=== PATIENT | female | born 1970 | race Caucasian/White ===

== ENCOUNTER 2024-01-01 13:02 | Observation (INO) | payer MEDICARE, BC ==
[~2024-01-01] VITALS: Ht 167.6 cm; Wt 108.2 kg
[~2024-01-01 13:02] MED LIST: ALPR1TAB2 PO; ARIP20TA4 PO; BUSP5TAB3 PO; HYDR25TA4 PO; LISI20TA28 PO; LITH150C8 PO
[2024-01-01 13:24] LABS: BASOPHILS # (AUTO) 0.1 X10'3 (0-0.2); BASOPHILS % (AUTO) 0.5 % (0-1); EOSINOPHILS # (AUTO) 0.3 X10'3 (0-0.9); EOSINOPHILS % (AUTO) 3.2 % (0-6); HEMATOCRIT 35.8 % (35.0-45.0); LYMPHOCYTES # (AUTO) 1.2 X10'3 (1.1-4.8); LYMPHOCYTES % (AUTO) 11.4 % (21-51); MEAN CORPUSCULAR HEMOGLOBIN 31.4 PG (27.0-31.0); MEAN CORPUSCULAR HGB CONC 33.6 g/dL (33.0-36.5); MEAN CORPUSCULAR VOLUME 93.3 FL (78-98); MEAN PLATELET VOLUME 8.1 FL (7.4-10.4); MONOCYTES # (AUTO) 0.6 X10'3 (0-0.9); MONOCYTES % (AUTO) 6.2 % (2-12); NEUTROPHILS # (AUTO) 8.2 X10'3 (1.8-7.7); NEUTROPHILS % (AUTO) 78.7 % (42-75); PLATELET COUNT 279 X10'3 (140-440); RED BLOOD COUNT 3.84 X10'6 (4.20-5.60); RED CELL DISTRIBUTION WIDTH 14.4 % (11.5-14.5); WHITE BLOOD COUNT 10.5 X10'3 (4.5-11.0)
[2024-01-01 13:39] LABS: APTT 24 SECONDS (22-32); PROTHROMBIN TIME 9.8 SECONDS (9.0-12.0)
[2024-01-01 13:46] LABS: ALANINE AMINOTRANSFERASE 37 U/L (12-78); ALBUMIN 4.1 G/DL (3.4-5.0); ALBUMIN/GLOBULIN RATIO 1.4 (1.1-1.5); ALKALINE PHOSPHATASE 86 IU/L (46-116); ANION GAP 12 (8-16); ANION GAP 13 (8-16); ASPARTATE AMINO TRANSFERASE 18 U/L (10-37); BILIRUBIN,TOTAL 0.3 MG/DL (0.1-1.0); BLOOD UREA NITROGEN 30 MG/DL (7-18); BLOOD UREA NITROGEN 31 MG/DL (7-18); BUN/CREATININE RATIO 14.9 (10.0-20.0); CALCIUM 8.3 MG/DL (8.5-10.1); CALCIUM 8.5 MG/DL (8.5-10.1); CHLORIDE 102 MMOL/L (99-107); CREATININE 2.02 MG/DL (0.40-0.90); CREATININE 2.07 MG/DL (0.40-0.90); GLUCOSE 137 MG/DL (70-104); GLUCOSE 139 MG/DL (70-104); POTASSIUM 3.8 MMOL/L (3.5-5.1); POTASSIUM 3.9 MMOL/L (3.5-5.1); SODIUM 137 MMOL/L (135-145); TOTAL CARBON DIOXIDE 22.3 MMOL/L (24-32); TOTAL CARBON DIOXIDE 22.8 MMOL/L (24-32); TOTAL PROTEIN 7.1 G/DL (6.4-8.2); eCRCL 29 ML/MIN; eGFR 25 ML/MIN; eGFR 26 ML/MIN
[2024-01-01 13:48] LABS: INR 0.9 INR
[2024-01-01 13:53] LABS: PRO BRAIN NATRIURETIC PEPTIDE 215 PG/ML (0-125)
[2024-01-01] MEDS ORDERED: iohexol 350MG/ML 100ml bottle IV ONE (14:09)
[2024-01-01 17:22] LABS: HEMOGLOBIN A1C 5.9 % (4.5-6.2)
[2024-01-01 17:28] LABS: BILIRUBIN,URINE NEGATIVE (Neg); CLARITY,URINE CLOUDY (Clear); COLOR,URINE STRAW (Yellow); GLUCOSE, URINE NEGATIVE (Neg); KETONES,URINE NEGATIVE (Neg); LEUKOCYTE ESTERASE ,URINE MODERATE (Neg); NITRITES, URINE NEGATIVE (Neg); OCCULT BLOOD,URINE NEGATIVE (Neg); PH,URINE 5.5 (4.8-8.0); PROTEIN,URINE NEGATIVE (Neg); UROBILINOGEN,URINE 0.2 E.U/dL (0.2-1.0)
[2024-01-01 17:35] LABS: UA COLLECTION TYPE CLN CATCH MIDSTREAM
[2024-01-01 17:58] LABS: BACTERIA,URINE FEW /HPF (Neg); RBC,URINE 0-2 /HPF (0-2); SQUAMOUS EPITHELIAL CELL,UR FEW /LPF (FEW)
[2024-01-01] MEDS: heparin, porcine 5000 units/ml vial SQ SCH (19:43)
[2024-01-01] MEDS: HYDROcodone/acetaminophen 5mg/325mg tablet PO PRN (19:43)
[2024-01-01] MEDS ORDERED: ALPR1TAB7 (19:52)
[2024-01-01] MEDS ORDERED: LISI1TAB51 PO ×2 (19:52→23:18)
[2024-01-01] MEDS ORDERED: PRAZ1CAP5 PO ×2 (19:52→23:18)
[2024-01-01] MEDS ORDERED: ATEN25TA PO (19:52)
[2024-01-01] MEDS ORDERED: GABAPENTIN (19:52)
[2024-01-01] MEDS ORDERED: FLUV100T21 (19:52)
[2024-01-01] MEDS: busPIRone 5mg tablet PO SCH (21:00)
[2024-01-01] MEDS: aripiprazole 10MG tablet PO SCH (21:00)
[2024-01-01 22:00] VITALS: BP 134/68; PULSE 63; RESP 16; TEMP 97.8; O2SAT 96
[2024-01-01 22:15] VITALS: RESP 18; O2SAT 95
[2024-01-01] MEDS ORDERED: CHOL20004 PO (23:18)
[2024-01-01] MEDS ORDERED: ATEN-169 PO (23:18)
[2024-01-01] MEDS ORDERED: GABA300C PO (23:18)
[2024-01-01] MEDS ORDERED: ALPR-624 PO (23:18)
[2024-01-01] MEDS ORDERED: PILO5TAB10 PO ×2 (23:18)
[2024-01-01] MEDS ORDERED: ASCO-100 PO (23:18)
[2024-01-01] MEDS ORDERED: ZINC220T3 PO (23:18)
[2024-01-01] MEDS ORDERED: MELA3TAB70 PO (23:18)
[2024-01-01] MEDS ORDERED: FLUV100T21 PO ×2 (23:18)
[2024-01-01] MEDS ORDERED: MULT-1085 PO (23:18)
[2024-01-01] MEDS ORDERED: DIPH-423 PO (23:18)
[2024-01-01] MEDS ORDERED: HYDR200T73 PO (23:18)
[2024-01-01] MEDS ORDERED: CYAN250010 PO (23:18)
[2024-01-01] MEDS ORDERED: MAGN500C4 PO (23:18)
[2024-01-01] MEDS ORDERED: OSC500T PO (23:18)
[2024-01-01] MEDS: gabapentin 300mg capsule PO SCH (23:50)
[2024-01-02] VITALS (9 sets, daily range): BP systolic 93–141; BP diastolic 36–62; PULSE 60–83; RESP 11–18; TEMP 97.4–98.8; O2SAT 93–99
[2024-01-02 07:44] LABS: BASOPHILS # (AUTO) 0.1 X10'3 (0-0.2); BASOPHILS % (AUTO) 0.9 % (0-1); EOSINOPHILS # (AUTO) 0.4 X10'3 (0-0.9); EOSINOPHILS % (AUTO) 5.8 % (0-6); HEMATOCRIT 34.9 % (35.0-45.0); HEMOGLOBIN 11.6 g/dl (12.0-16.0); LYMPHOCYTES # (AUTO) 1.3 X10'3 (1.1-4.8); LYMPHOCYTES % (AUTO) 17.7 % (21-51); MEAN CORPUSCULAR HEMOGLOBIN 30.8 PG (27.0-31.0); MEAN CORPUSCULAR HGB CONC 33.1 g/dL (33.0-36.5); MEAN CORPUSCULAR VOLUME 93.1 FL (78-98); MEAN PLATELET VOLUME 7.9 FL (7.4-10.4); MONOCYTES # (AUTO) 0.6 X10'3 (0-0.9); MONOCYTES % (AUTO) 8.8 % (2-12); NEUTROPHILS # (AUTO) 4.9 X10'3 (1.8-7.7); NEUTROPHILS % (AUTO) 66.8 % (42-75); PLATELET COUNT 290 X10'3 (140-440); RED BLOOD COUNT 3.75 X10'6 (4.20-5.60); RED CELL DISTRIBUTION WIDTH 14.1 % (11.5-14.5); WHITE BLOOD COUNT 7.3 X10'3 (4.5-11.0)
[2024-01-02] MEDS ORDERED: lithium carbonate 150mg capsule PO SCH (08:00)
[2024-01-02] MEDS ORDERED: ALPRAZolam 0.5mg tablet PO SCH (08:00)
[2024-01-02 08:14] LABS: ANION GAP 10 (8-16); BLOOD UREA NITROGEN 22 MG/DL (7-18); BUN/CREATININE RATIO 16.1 (10.0-20.0); CHLORIDE 103 MMOL/L (99-107); CHOL/HDL RATIO 3.8 (0.00-4.99); CHOLESTEROL 188 MG/DL (0-200); CREATININE 1.37 MG/DL (0.40-0.90); GLUCOSE 104 MG/DL (70-104); HDL CHOLESTEROL 50 MG/DL (35-60); LDL CHOLESTEROL 102 MG/DL (50-100); POTASSIUM 3.6 MMOL/L (3.5-5.1); SODIUM 138 MMOL/L (135-145); TOTAL CARBON DIOXIDE 25.3 MMOL/L (24-32); TRIGLYCERIDES 200 MG/DL (20-135); eCRCL 43 ML/MIN; eGFR 40 ML/MIN
[2024-01-02] MEDS: HYDROchlorothiazide 25mg tablet PO SCH (08:24)
[2024-01-02] MEDS: lisinopril 20mg tablet PO SCH (08:24)
[2024-01-02] MEDS: PERFLUTREN PROTEIN-A MICROSPHR (Optison) 0.22 MG/ML 3ML VIAL IV ONE (13:25)
[2024-01-02] MEDS: ringers solution, lacted 1,000 ML IV ONE (16:53)
[2024-01-02] MEDS: normal saline 1000ml 1,000 ML IV SCH (16:55)
[2024-01-02] MEDS: normal saline 1000ml 1,000 ML IV ONE (18:50)
[2024-01-02] MEDS: CefTRIAXone/D5W-Rocephin 1gm 50 ML IV SCH (18:53)
[2024-01-02] MEDS ORDERED: gabapentin 300mg capsule PO SCH ×2 (21:00)
[2024-01-02] MEDS: aspirin 325mg tablet PO ONE (21:20)
[2024-01-02] MEDS: atorvastatin 20mg tablet PO SCH (21:21)
[2024-01-02] MEDS: ALPRAZolam 0.5mg tablet PO PRN (23:44)
[2024-01-03 02:00] VITALS: BP 134/62; PULSE 63; RESP 16; TEMP 97.5; O2SAT 92
[2024-01-03 06:00] VITALS: BP 124/64; PULSE 64; RESP 16; TEMP 98; O2SAT 92
[2024-01-03 06:52] LABS: BASOPHILS # (AUTO) 0.1 X10'3 (0-0.2); BASOPHILS % (AUTO) 1.3 % (0-1); EOSINOPHILS # (AUTO) 0.4 X10'3 (0-0.9); HEMATOCRIT 32.8 % (35.0-45.0); HEMOGLOBIN 10.9 g/dl (12.0-16.0); LYMPHOCYTES # (AUTO) 1.1 X10'3 (1.1-4.8); LYMPHOCYTES % (AUTO) 16.9 % (21-51); MEAN CORPUSCULAR HEMOGLOBIN 30.7 PG (27.0-31.0); MEAN CORPUSCULAR HGB CONC 33.3 g/dL (33.0-36.5); MEAN CORPUSCULAR VOLUME 92.2 FL (78-98); MONOCYTES # (AUTO) 0.7 X10'3 (0-0.9); MONOCYTES % (AUTO) 10.1 % (2-12); NEUTROPHILS # (AUTO) 4.4 X10'3 (1.8-7.7); NEUTROPHILS % (AUTO) 65.7 % (42-75); PLATELET COUNT 242 X10'3 (140-440); RED BLOOD COUNT 3.56 X10'6 (4.20-5.60); RED CELL DISTRIBUTION WIDTH 13.9 % (11.5-14.5); WHITE BLOOD COUNT 6.7 X10'3 (4.5-11.0)
[2024-01-03 07:11] LABS: ALBUMIN 3.6 G/DL (3.4-5.0); ANION GAP 7 (8-16); BLOOD UREA NITROGEN 13 MG/DL (7-18); BUN/CREATININE RATIO 13.8 (10.0-20.0); CALCIUM 7.8 MG/DL (8.5-10.1); CHLORIDE 103 MMOL/L (99-107); CREATININE 0.94 MG/DL (0.40-0.90); GLUCOSE 103 MG/DL (70-104); POTASSIUM 3.9 MMOL/L (3.5-5.1); SODIUM 136 MMOL/L (135-145); TOTAL CARBON DIOXIDE 26.2 MMOL/L (24-32); eCRCL 63 ML/MIN; eGFR 62 ML/MIN
[2024-01-03] MEDS: PILOCARPINE HCL PO SCH (08:00)
[2024-01-03] MEDS ORDERED: fluvoxamine 25 MG tablet PO SCH ×2 (08:00→21:00)
[2024-01-03] MEDS: atenolol 25mg tablet PO SCH (09:05)
[2024-01-03] MEDS: aspirin 81mg, enteric-coated 1 TAB TABLET.DR PO SCH (09:05)
[2024-01-03] MEDS: fluvoxamine 25 MG tablet PO SCH (09:06)
[2024-01-03] MEDS: hydroxychloroquine 200mg tablet PO SCH (09:10)
[2024-01-03 10:00] VITALS: BP 104/55; PULSE 57; RESP 16; TEMP 98.1; O2SAT 97
[2024-01-03] MEDS ORDERED: ASPI-611 PO (10:13)
[2024-01-03] MEDS ORDERED: ATOR40TA72 PO (10:13)
[2024-01-03] MEDS ORDERED: HYDR-3965 PO (16:58)
[2024-01-03] MEDS ORDERED: Melatonin 3mg tablet PO SCH (21:00)
[2024-01-03] MEDS ORDERED: PILOCARPINE HCL PO SCH (21:00)
[2024-01-03] MEDS ORDERED: prazosin 1mg capsule PO SCH (21:00)
== END 2024-01-03 13:45 | disposition home or self-care (01) ==
LOC: ER 13:04 → ED HOLD 16:37 → EDBEDREQ 21:16 → ORTHO 4S 22:09
PROVIDERS: ADMIT Family Medicine; ATTEND Family Medicine
DX: I63.9 Cerebral infarction, unspecified (principal); N39.0 Urinary tract infection, site not specified; I10 Essential (primary) hypertension; M35.00 Sjogren syndrome, unspecified; L10.0 Pemphigus vulgaris; D50.0 Iron deficiency anemia secondary to blood loss (chronic); F42.9 Obsessive-compulsive disorder, unspecified; F43.10 Post-traumatic stress disorder, unspecified; R79.89 Other specified abnormal findings of blood chemistry; G62.9 Polyneuropathy, unspecified; R55 Syncope and collapse; F31.9 Bipolar disorder, unspecified; F41.1 Generalized anxiety disorder; F17.210 Nicotine dependence, cigarettes, uncomplicated; M25.571 Pain in right ankle and joints of right foot; R60.0 Localized edema; M81.0 Age-related osteoporosis without current pathological fracture; Z88.0 Allergy status to penicillin; Z88.8 Allergy status to other drugs, medicaments and biological substances; Z98.84 Bariatric surgery status; Z79.899 Other long term (current) drug therapy
CPT/HCPCS: 70450; 70496; 70498; 70551; 73610; 80048; 80053; 80061; 81001; 82948; 83036; 83880; 84484; 85610; 85730; 93005; 93880; 96361; 96365; 96366; 96372; 97161; 99285; G0378; J7120; 36415; 71045; 85025; 87081; 87088; 92508; 92616; 93306; 97110; 97530; 97760; J0696; J1644; J7030; Q9967